=== PATIENT | female | born 1925 | race Caucasian/White ===

== ENCOUNTER → 2016-06-25 | Outpatient (CLI) | payer MEDICARE, OTHER ==
[~2016-06-25] MED LIST: ALEN70TA2 PO; ALLO100T PO; ALPRAZOLAM PO; AMLO2.5T; ASPI81CH43 PO; GABA600T PO; HYDRCRY2 PO; LEVO100C PO; MULTTAB99 PO; OMEP20TA37 PO; POTA99TA13 PO; TIMO0.5S40; [UNRECOGNIZED DRUG - CODE] PO; [UNRECOGNIZED DRUG - OTHER] PO
[2016-06-25 16:42] LABS: Calcium 8.8 mg/dL (8.5-10.1); Potassium 4.6 mmol/L (3.5-5.1)
[2016-06-25 16:44] LABS: B-Type Natriuretic Peptide 96.86 pg/mL (0-100)
[2016-06-25 16:45] LABS: BUN/Creatinine Ratio 26.7
[2016-06-25 16:50] LABS: Temperature: 23.4 C (20.0-25.0)
== END | disposition home or self-care (01) ==
LOC: LAB 11:49
PROVIDERS: ATTEND Internal Medicine Cardiovascular Disease
DX: I10 Essential (primary) hypertension (principal); I50.9 Heart failure, unspecified
CPT/HCPCS: 36415; 80048; 83880

== ENCOUNTER → 2016-08-24 | Outpatient (CLI) | payer MEDICARE, OTHER | END | disposition home or self-care (01) | LOC: HDHVI->DVH 10:59 | PROVIDERS: ATTEND Internal Medicine Cardiovascular Disease | DX: I10 Essential (primary) hypertension (principal); H35.30 Unspecified macular degeneration; G62.9 Polyneuropathy, unspecified; M54.5 Low back pain; M19.90 Unspecified osteoarthritis, unspecified site; Z95.5 Presence of coronary angioplasty implant and graft | CPT/HCPCS: 93880 ==

== ENCOUNTER → 2016-09-09 | Outpatient (CLI) | payer MEDICARE, OTHER | END | disposition home or self-care (01) | LOC: HDHVI->DVH 11:21 | PROVIDERS: ATTEND Internal Medicine Cardiovascular Disease | DX: R07.9 Chest pain, unspecified (principal); I10 Essential (primary) hypertension | CPT/HCPCS: 93306 ==

== ENCOUNTER → 2016-10-20 | Outpatient (CLI) | payer MEDICARE, OTHER ==
[~2016-10-20] MED LIST changes: +AMLO5TAB2 PO; +AZIL40TA2 PO; +CLOP75TA28 PO; +METO-158 PO; +NALO1TAB2 PO; +NOR5T PO; +OMEP20CA5 PO; +OXYC-629 PO; +PAR20T PO; +PRAV20TA3 PO; +RISP0.2512 PO; +SENN8.6C PO
[2016-10-20 10:30] VITALS: BP 133/51
[2016-10-20 11:00] VITALS: BP 135/60
[2016-10-20 17:14] LABS: Basophils # (auto) 0 uL; Basophils % (auto) 0.6 % (0.0-2.0); Eosinophils # (auto) 0.3 uL; Eosinophils % (auto) 5.9 % (0.0-7.0); Hematocrit 33.8 % (36.0-46.0); Hemoglobin 11.3 g/dL (12.2-16.2); Lymphocytes # (auto) 1.1 uL; Lymphocytes % (auto) 20.4 % (10.0-50.0); Mean Corpuscular Hemoglobin 30.5 pg (28.0-32.0); Mean Corpuscular Hgb Conc. 33.4 g/dL (32.0-36.0); Mean Corpuscular Volume 91.4 fL (80.0-100.0); Monocytes # (auto) 0.6 uL; Monocytes % (auto) 11.1 % (0.0-12.0); Neutrophils # (auto) 3.3 uL; Platelet Count (auto) 171 10^3/uL (140-450); White Blood Cell 5.4 10^3/uL (4.4-10.8)
[2016-10-20 17:17] LABS: INR 0.98 (0.9-1.15); Partial Thromboplastin Time 23.9 sec (22.64-33.71); Prothrombin Time 10.7 sec (9.37-12.3)
[2016-10-20 17:30] LABS: Calcium 8.7 mg/dL (8.5-10.1)
[2016-10-20 17:33] LABS: BUN/Creatinine Ratio 21.8
== END | disposition home or self-care (01) ==
LOC: Rad HDHVI 10:20
PROVIDERS: ATTEND Internal Medicine Cardiovascular Disease
DX: I10 Essential (primary) hypertension (principal); D64.9 Anemia, unspecified; R79.1 Abnormal coagulation profile; Z01.812 Encounter for preprocedural laboratory examination
CPT/HCPCS: 36415; 71020; 80048; 85025; 85610; 85730; 93005; G0463

== ENCOUNTER → 2017-02-16 | Outpatient (CLI) | payer MEDICARE, OTHER ==
[~2017-02-16] MED LIST changes: -ALEN70TA2 PO; -ALLO100T PO; -AMLO2.5T; +HYDR-4683 PO; -HYDRCRY2 PO; -NOR5T PO; -OMEP20CA5 PO; +OMEP20CA74 PO; -OMEP20TA37 PO; -POTA99TA13 PO; -TIMO0.5S40; -[UNRECOGNIZED DRUG - OTHER] PO
== END | disposition home or self-care (01) ==
LOC: Rad HDHVI 09:20
PROVIDERS: ATTEND Internal Medicine Cardiovascular Disease
DX: T82.898S Other specified complication of vascular prosthetic devices, implants and grafts, sequela (principal)
CPT/HCPCS: 93880

== ENCOUNTER → 2017-02-18 | Outpatient (CLI) | payer MEDICARE, OTHER ==
[~2017-02-18] MED LIST changes: +ADENOSINE 53 MG in GIVE UN-DILUTED 0 ML IV ONE; +ADENOSINE 90 MG/30 ML INJ IV ONE
== END | disposition home or self-care (01) ==
LOC: Rad HDHVI 10:18
PROVIDERS: ATTEND Internal Medicine Cardiovascular Disease
DX: I11.0 Hypertensive heart disease with heart failure (principal); I50.9 Heart failure, unspecified; I25.10 Atherosclerotic heart disease of native coronary artery without angina pectoris; E78.00 Pure hypercholesterolemia, unspecified; J44.9 Chronic obstructive pulmonary disease, unspecified; I63.232 Cerebral infarction due to unspecified occlusion or stenosis of left carotid arteries; I73.9 Peripheral vascular disease, unspecified; N39.0 Urinary tract infection, site not specified; R50.9 Fever, unspecified; T82.898S Other specified complication of vascular prosthetic devices, implants and grafts, sequela
CPT/HCPCS: 78452; 93005; 96374; 96375; A9500; J0153

== ENCOUNTER → 2017-02-23 | Outpatient (CLI) | payer MEDICARE, OTHER ==
[~2017-02-23] MED LIST changes: -ADENOSINE 53 MG in GIVE UN-DILUTED 0 ML IV ONE; -ADENOSINE 90 MG/30 ML INJ IV ONE; +HYDR-4663 PO; -HYDR-4683 PO
[2017-02-23 16:46] LABS: Urine Bilirubin Negative (Negative); Urine Blood Negative /uL (Negative); Urine Color Yellow (Yellow); Urine Glucose Normal (Normal); Urine Ketone Negative (Negative); Urine Nitrite POSITIVE (Negative); Urine Urobilinogen Normal (Negative); Urine pH 5.5 (5.0-8.0)
== END | disposition home or self-care (01) ==
LOC: LAB 11:25
PROVIDERS: ATTEND Internal Medicine Cardiovascular Disease
DX: N39.0 Urinary tract infection, site not specified (principal)
CPT/HCPCS: 81003; 87086; 87088; 87186